=== PATIENT | male | born 1980 | race Caucasian/White ===

== ENCOUNTER 2022-12-31 09:38 | Emergency (ER) | payer OTHER, SELFPAY ==
[2022-12-31 09:47] VITALS: BP 146/88; PULSE 77; RESP 18; TEMP 37; O2SAT 100
--- NOTE | 2022-12-31 10:12 | ED.EYEPROB ---
HPI - Eye Problem General Chief complaint: Eye Problems Stated complaint: Eye Problem Time Seen by Provider: 12/31/22 10:12 History of Present Illness HPI Narrative: Patient presents with redness itching and some drainage to left eye. No pain no injury patient is concerned for pinkeye. Related Data Home Medications Medication Instructions Recorded Confirmed omeprazole magnesium 20 mg 20 mg PO DAILY 12/31/22 12/31/22 tablet,delayed release (Prilosec OTC) Allergies Allergy/AdvReac Type Severity Reaction Status Date / Time No Known Allergies Allergy Verified 12/31/22 10:05 Review of Systems Review of Systems: CONSTITUTIONAL: Denies fever, chills, or sweats. EYES: Denies visual changes, redness, or discharge. ENT: Denies rhinorrhea, congestion, sore throat, or otalgia. CARDIOVASCULAR: Denies chest pain, palpitations, or edema. RESPIRATORY: Denies cough or dyspnea. GASTROINTESTINAL: Denies abdominal pain, nausea, vomiting, or diarrhea. GENITOURINARY: Denies dysuria or hematuria. SKIN: Denies rash or itching. MUSCULOSKELETAL: Denies back pain, joint pain, or myalgia. NEUROLOGIC: Denies headache, numbness, or weakness. PSYCHIATRIC: Denies anxiety or depression. PMFSH Comments At time of signature, agree with nursing past medical, surgical, social and family history. There is no relevant family history pertinent to the presenting complaint Exam Narrative: GENERAL: Well-appearing, well-nourished, and in no acute distress. HEAD: Normocephalic, atraumatic. EYES: PERRLA and EOMI. ENT: Nares clear, no rhinorrhea or epistaxis. Mucous membranes moist. NECK: Supple. CHEST: Clear to auscultation. No respiratory distress. HEART: Regular rate and rhythm. No murmur heard. Normal peripheral pulses. ABDOMEN: Soft, nontender, nondistended, normal active bowel sounds. EXTREMITIES: Normal range of motion. No edema. SKIN: Warm, dry, no rash. NEURO: No focal deficits. Alert and oriented x3. Gael Coma Scale Eye Opening: Spontaneous 4 Gael Coma Scale Motor: Obeys Commands 6 Gael Coma Scale Verbal: Oriented 5 Gael Coma Scale Total 15 Eyes: Conjunctivae: conjunctival abnormality left conjunctival injection Course Course Level of Care: Express Care Visit Vital Signs Vital signs: Vital Signs Temperature 37.0 C 12/31/22 09:47 Pulse Rate 77 12/31/22 09:47 Respiratory Rate 18 12/31/22 09:47 Blood Pressure 146/88 H 12/31/22 09:47 Pulse Oximetry 100 12/31/22 09:47 Oxygen Delivery Room Air 12/31/22 09:47 Temperature 37.0 C 12/31/22 09:47 Pulse Rate 77 12/31/22 09:47 Respiratory Rate 18 12/31/22 09:47 Blood Pressure 146/88 H 12/31/22 09:47 Pulse Oximetry 100 12/31/22 09:47 Oxygen Delivery Room Air 12/31/22 09:47 Please GIOVANNY schedule a followup visit with your personal physician for further evaluation and treatment. Including recheck and discussion of your blood pressure. If your symptoms persist, change or worsen significantly before you can contact your personal physician then please, without delay, go to the emergency department for further evaluation Discharge Plan Discharge Clinical Impression: Bacterial conjunctivitis Patient Disposition: Home, Self-Care Condition: Stable Instructions: Antibiotic Form Additional Instructions: Conjunctivitis is spread by nuax-or-fnth contact or by touching a contaminated surface. You can use artificial tears, cold and warm compresses-use, different compress for each eye, and increase hygiene such as hand-washing. Do not wear contacts for 1 week, if applicable. Do not return for 24 hours to daycare, school, workplace for 24 hours after first antibiotic dose. Change bedding. follow up with eye doctor in 24-48 hours -If you have any worsening of symptoms or any other concerns please go to the ED immediately. Prescriptions: New ofloxacin [Ocuflox] 0.3 % drops See Rx Instructions .ROUTE .COMPLEX Qty: 5 0RF Rx
== END 2022-12-31 10:20 | disposition home or self-care (01) ==
PROVIDERS: Emergency Provider Nurse Practitioner Family; PCP Hospitalist
DX: H10.89 Other conjunctivitis (principal)
CPT/HCPCS: 99213; G0463

== ENCOUNTER → 2023-02-23 11:13 | Outpatient (CLI) | payer OTHER, SELFPAY ==
--- NOTE | ~2023-02-23 | CT_ITS ---
EXAMINATION: CT abdomen pelvis wo con DATE: 02/23/2023 11:31 INDICATION: Left flank pain. History of kidney stones. TECHNIQUE: Computed tomography (CT) of the abdomen and pelvis was performed without intravenous contr ast. Automated exposure control and iterative reconstruction technique were employed. Exam dose: 100 0.91 mGy-cm total exam DLP. COMPARISON: 09/12/2019 KUB FINDINGS: The lung bases are clear. Normal heart size. No pericardial or pleural effusion. The liver, gallbladder, bile ducts, pancreas, pancreatic duct, spleen and adrenal glands are unremark able. There are multiple nonobstructing calculi of both kidneys, 5 or more on each side, the largest situat ed in the lower pole of the right kidney, measuring up to 6.6 x 11.2 mm, with attenuation of 906 Houn sfield units. There is an up to 5.5 x 8.5 mm right ureteropelvic junction calculus. There is no hydronephrosis of e ither kidney. There is an approximately 1.5 cm partially exophytic cyst of the medial aspect of the upper pole of t he right kidney. Approximately 7 mm probable exophytic cortical cyst of the anterior mid right kidney . No other renal space-occupying mass lesions are evident on this limited noncontrast examination. Normal caliber of the abdominal aorta. No intraperitoneal or retroperitoneal or pelvic mass lesion or adenopathy or ascites. Moderate prostate enlargement. Some prostate calcifications are noted. Moderate diffuse thickening of the urinary bladder wall. Small sliding hiatal hernia. Normal appendix. No bowel obstruction, bowel wall thickening, pneumatosis or intraperitoneal free air . Small fat-containing umbilical hernia. No suspicious osteolytic or osteoblastic lesions. Moderately severe degenerative disc disease at L5-S 1. IMPRESSION: Bilateral nephrolithiasis Approximately 5.5 x 8.5 mm right ureteropelvic junction calculus Right renal cysts Small sliding hiatal hernia Moderate prostate enlargement, prostate calcifications Normal appendix Reviewed, dictated and finalized at [facility]. Reviewed, dictated and finalized at [facility].
== END ==
PROVIDERS: PCP Nurse Practitioner; Visit Provider Nurse Practitioner
DX: R10.9 Unspecified abdominal pain (principal); N20.0 Calculus of kidney; N28.1 Cyst of kidney, acquired; K44.9 Diaphragmatic hernia without obstruction or gangrene; N40.0 Benign prostatic hyperplasia without lower urinary tract symptoms
CPT/HCPCS: 74176